=== PATIENT | female | born 1985 | race Two or more races ===

== ENCOUNTER 2021-09-27 11:28 | Inpatient (IN) | payer OTHER ==
[~2021-09-27] VITALS: Ht 170.2 cm; Wt 885.0 kg
[2021-10-10] MEDS ORDERED: PRENATAL TABLE1 EAC1 PO (16:43)
== END 2021-10-12 12:12 | disposition home or self-care (01) | DRG 807 ==
LOC: OB/GYN 10-10 15:24 → LDR 10-10 15:24 → OB/GYN 10-10 21:48
PROVIDERS: ADMIT Obstetrics & Gynecology; ATTEND Obstetrics & Gynecology
PROC: 10E0XZZ Delivery of Products of Conception, External Approach (ICD-10-PCS; principal; 2021-10-10)
PROC: 0W8NXZZ Division of Female Perineum, External Approach (ICD-10-PCS; 2021-10-10)
PROC: 0HQ9XZZ Repair Perineum Skin, External Approach (ICD-10-PCS; 2021-10-10)
PROC: 4A1HXCZ Monitoring of Products of Conception, Cardiac Rate, External Approach (ICD-10-PCS; 2021-10-10)
DX: O70.0 First degree perineal laceration during delivery (principal); Z37.0 Single live birth; Z3A.39 39 weeks gestation of pregnancy; Z20.822 Contact with and (suspected) exposure to COVID-19